=== PATIENT | female | born 1980 | race Caucasian/White ===

== ENCOUNTER 2016-04-15 21:39 | Emergency (ER) | payer SELFPAY ==
[~2016-04-15] VITALS: Ht 160 cm; Wt 75.9 kg
[~2016-04-15 21:39] MED LIST: CLEO300C2 PO; ESOM1CAP6 PO; LORTA5 PO; MMW SSP; NORV10TA PO
[2016-04-15 21:55] VITALS: BP 106/75; PULSE 92; RESP 16; TEMP 98.6; O2SAT 99
--- NOTE | 2016-04-15 22:40 | PD ---
HPI Chief Complaint: Oral / Dental Pain or Problem Time Seen by Provider: 22:37 Travel History International Travel<30 days: No Contact w/Intl Traveler<30days: No History of Present Illness HPI Patient comes in complaining of right upper dental pain ongoing for about a week. Patient's states filling fell out a Couple Years Ago but Has Not Been able to get in with a Dentist yet secondary to financial and insurance issues. Patient's been using Anbesol with some improvement of her pain. Pain is worse with eating or drinking. Patient has any known fevers, nausea, vomiting, difficulty swallowing, or . PFSH Past Medical History Asthma: [place]") Autoimmune Disease: Yes (CHRONIC ABD PAIN, IBS AND CROHNS - PT DENIES) Blood Disorders: No Depression: Yes Heart Rhythm Problems: Yes Cancer: No Cardiovascular Problems: Yes (TACHYCARDIA) High Cholesterol: No Chemotherapy: No Chest Pain: No Congestive Heart Failure: No COPD: No Diabetes: No Diminished Hearing: No Diverticulitis: Yes (PT DENIES) Endocrine: No Gastrointestinal Disorders: Yes (GASTROPARESIS) Genitourinary: Yes Immune Disorder: No Kidney Stones: No Musculoskeletal: Yes (2 herniated discs) Neurologic: No Psychiatric: No Reproductive: Yes (ovary removed left side) Respiratory: No Radiation Therapy: No Renal Failure: No Sleep Apnea: No Thyroid Disease: No : 1 Para: 0 Miscarriage: 1 : 0 Ectopic : Yes Ovarian Cysts: Yes Past Surgical History Abdominal Surgery: Yes (HERNIA REPAIRS WITH MESH AGE 22 FOR DOUBLE INGUINAL HERNIAS 2O TO MYOMECTOM) Appendectomy: Yes Body Medical Devices: CHRONIC ABD. PAIN S/P SURGERY LAST YR WITH MESH INSERTION Cardiac Surgery: No Ear Surgery: No Endocrine Surgery: No Eye Surgery: No Genitourinary Surgery: No Gynecologic Surgery: Yes Neurologic Surgery: No Oral Surgery: No Pacemaker: No Thoracic Surgery: No Other Surgery: Yes Social History Alcohol Use: No Tobacco Use: Yes (2 PPD) Substance Use: No Allergies-Medications (Allergen,Severity, Reaction): Coded Allergies: Ambien (Verified Allergy, Severe, HALLUCINATIONS, 04/15/16) Contrast Media (Verified Allergy, Severe, ANAPHYLAXIS, 04/15/16) Flagyl (Verified Allergy, Severe, HIVES, 04/15/16) Iodine (Verified Allergy, Severe, ORAL IODINE, 04/15/16) Penicillin (Verified Allergy, Severe, ANAPHYLAXIS, 04/15/16) Sulfa (Verified Allergy, Severe, Swelling, 04/15/16) Tetanus Toxoid (Verified Allergy, Severe, ANAPHYLAXIS, 04/15/16) Macrobid (Verified Adverse Reaction, Intermediate, Chest Pain, 04/15/16) Reported Meds & Prescriptions Reported Meds & Active Scripts Active Diclofenac Sodium DR (Diclofenac Sodium) 75 Mg Tabdr 75 Mg PO Q12HR PRN Clindamycin (Clindamycin HCl) 150 Mg Cap 2 Tab PO Q6H 10 Days Review of Systems Except as stated in HPI: all other systems reviewed are Neg Physical Exam Narrative GENERAL: Well-developed, overly nourished, in no acute distress, and non-ill appearing. SKIN: Warm and dry. HEAD: Atraumatic. Normocephalic. EYES: Pupils equal and round. EOMI. No scleral icterus. No injection or drainage. ENT: No nasal bleeding or discharge. Mucous membranes pink and moist. Poor dentition with no visible or palpable abscess. Tympanic membranes pearly almonte. Posterior pharynx erythematous without exudate. Uvula is midline. NECK: Trachea midline. No cervical lymphadenopathy. Supple. No nuclear rigidity. RESPIRATORY: No accessory muscle use. No respiratory distress. MUSCULOSKELETAL: No obvious deformities. No clubbing. No cyanosis. No edema. Full range of motion. NEUROLOGICAL: Awake and alert. No obvious cranial nerve deficits. Motor grossly within normal limits. Normal speech. PSYCHIATRIC: Appropriate mood and affect; insight and judgment normal. Data Data Last Documented VS Vital Signs Date Time Temp Pulse Resp B/P Pulse Ox O2 Delivery O2 Flow Rate FiO2 04/15/16 23:09 72 18 112/78 99 04/15/16 21:55 98.6 MDM Medical Decision Making Medical Screen Exam Complete: Yes Emergency Medical Condition: Yes Differential Diagnosis Dental abscess, dental infection, dentalgia, other Narrative Course The patient presented with dental pain. There is no fever. There is no significant facial swelling or evidence of cellulitis. There is poor dentition but no evidence of drainable abscess at this time. There is no evidence of significant deep or invading abscess at this time. The patient will be placed on antibiotics and pain medication. The patient was instructed to follow up with a dentist. The patient was given the dental referral sheet. Warnings were discussed with the patient regarding worsening of infection. The patient is to return if pain worsens, develops progressive swelling or facial redness or fever. The patient agrees with plan. Patient in no obvious distress upon re-evaluation. Patient was asked if they wanted to speak to my attending, which the patient did not wish to do at this time. Any questions/concerns in reference to patient diagnosis/condition discussed and clarified prior to patient's discharge. Reinforced sheer importance of close follow up with patient's primary physician or primary care clinic. Instructed patient to return to ED immediately, if symptoms return/ worsen. Pt showed understanding of above instructions. Further instructions and recommendations were detailed in discharge paperwork. Pt ambulated without difficulty out of ED at discharge. Diagnosis Primary Impression: Dental infection Patient Instructions: Dental Abscess (ED), Dental Caries (DC), General Instructions Additional Instructions: Follow-up with your primary care physician and dentist as soon as possible. Rinse mouth with warm salt water gargles. Take all medication as prescribed. Return to the emergency department if symptoms get worse. Med/Other Pt SpecificInfo: Prescription(s) given Scripts Diclofenac Sodium DR 75 Mg Tabdr75 Mg PO Q12HR PRN (PAIN SCALE 1 TO 10) #14 TAB Ref 0 Prov:Antonio Jackson MD 04/15/16 Clindamycin 150 Mg Cap2 Tab PO Q6H 10 Days Ref 0 Prov:Antonio Jackson MD 04/15/16 Disposition: 01 DISCHARGE HOME Condition: Stable Adam Jennings Apr 15, 2016 22:40
[2016-04-15] MEDS ORDERED: DICL75TA PO (22:41)
[2016-04-15] MEDS ORDERED: CLIN1CAP5 PO (22:41)
[2016-04-15 23:09] VITALS: BP 112/78
== END 2016-04-15 23:09 | disposition home or self-care (01) ==
LOC: PHEFT 21:39
DX: K04.7 Periapical abscess without sinus (principal); R00.0 Tachycardia, unspecified; K31.84 Gastroparesis; F17.210 Nicotine dependence, cigarettes, uncomplicated
CPT/HCPCS: 99282

== ENCOUNTER 2016-05-30 21:16 | Emergency (ER) | payer SELFPAY ==
[~2016-05-30] VITALS: Ht 165.1 cm; Wt 65.0 kg
[~2016-05-30 21:16] MED LIST changes: -CLEO300C2 PO; +CLIN1CAP5 PO; +DICL75TA PO; -ESOM1CAP6 PO; -LORTA5 PO; -MMW SSP; -NORV10TA PO
[2016-05-30 21:22] VITALS: BP 117/68; PULSE 64; RESP 16; TEMP 98.6; O2SAT 100
[2016-05-30] MEDS ORDERED: SODIUM CHLOR 0.9% 1000 ML INJ 1,000 ML IV SCH (21:46)
[2016-05-30] MEDS ORDERED: NALOXONE HCL 2 MG/2 ML VIAL ONE (21:47)
[2016-05-30 21:58] VITALS: RESP 16
[2016-05-30] MEDS ORDERED: SODIUM CHLORIDE 0.9% FLUSH 5 ML FLUSH IVF PRN (22:00)
--- NOTE | 2016-05-30 22:08 | RADRPT ---
EXAM DATE/TIME: 05/30/2016 21:58 [facility] COMPARISON: CHEST PA & LAT, November 13, 2012, 0:23. INDICATIONS : Short of Breath, Altered Mental Status. MEDICAL HISTORY : Asthma. SURGICAL HISTORY : None. ENCOUNTER: Initial ACUITY: 1 day PAIN SCORE: Non-responsive. LOCATION: Bilateral chest FINDINGS: A single view of the chest demonstrates the lungs to be symmetrically aerated without evidence of mas s, infiltrate or effusion. The cardiomediastinal contours are unremarkable. Osseous structures are intact. CONCLUSION: No acute disease. Gregory Santos MD on May 30, 2016 at 22:06 Board Certified Radiologist. This report was verified electronically.
--- NOTE | 2016-05-30 22:18 | PD ---
HPI Chief Complaint: Altered Mental Status Time Seen by Provider: 22:00 Travel History International Travel<30 days: No Contact w/Intl Traveler<30days: No Traveled to known affect area: No History of Present Illness HPI Patient is a 35-year-old female brought in by EMS for evaluation of altered mental status. Per EMS report patient vomited twice. Patient is groggy, is not answering questions at this time. PFSH Past Medical History Asthma: [place] ("[place]") Autoimmune Disease: Yes (CHRONIC ABD PAIN, IBS AND CROHNS - PT DENIES) Blood Disorders: No Depression: Yes Heart Rhythm Problems: Yes Cancer: No High Cholesterol: No Chemotherapy: No Chest Pain: No Congestive Heart Failure: No COPD: No Diabetes: No Diminished Hearing: No Diverticulitis: Yes (PT DENIES) Endocrine: No Genitourinary: Yes Hypertension: No Immune Disorder: No Implanted Vascular Access Dvce: No Kidney Stones: No Musculoskeletal: Yes (2 herniated discs) Neurologic: No Psychiatric: No Reproductive: Yes (ovary removed left side) Respiratory: No Immunizations Current: No Radiation Therapy: No Renal Failure: No Sleep Apnea: No Thyroid Disease: No Tetanus Vaccination: > 5 Years ?: Unknown LMP: 05/29/16 : 1 Para: 0 Miscarriage: 1 : 0 Ectopic : Yes Ovarian Cysts: Yes Past Surgical History Abdominal Surgery: Yes (HERNIA REPAIRS WITH MESH AGE 22 FOR DOUBLE INGUINAL HERNIAS 2O TO MYOMECTOM) Appendectomy: Yes Body Medical Devices: CHRONIC ABD. PAIN S/P SURGERY LAST YR WITH MESH INSERTION Cardiac Surgery: No Ear Surgery: No Endocrine Surgery: No Eye Surgery: No Genitourinary Surgery: No Gynecologic Surgery: Yes Neurologic Surgery: No Oral Surgery: No Pacemaker: No Thoracic Surgery: No Other Surgery: Yes Social History Alcohol Use: No Tobacco Use: Yes (2 PPD) Substance Use: No Allergies-Medications (Allergen,Severity, Reaction): Coded Allergies: Ambien (Verified Allergy, Severe, HALLUCINATIONS, 05/30/16) Contrast Media (Verified Allergy, Severe, ANAPHYLAXIS, 05/30/16) Flagyl (Verified Allergy, Severe, HIVES, 05/30/16) Iodine (Verified Allergy, Severe, ORAL IODINE, 05/30/16) Penicillin (Verified Allergy, Severe, ANAPHYLAXIS, 05/30/16) Sulfa (Verified Allergy, Severe, Swelling, 05/30/16) Tetanus Toxoid (Verified Allergy, Severe, ANAPHYLAXIS, 05/30/16) Macrobid (Verified Adverse Reaction, Intermediate, Chest Pain, 05/30/16) Reported Meds & Prescriptions Reported Meds & Active Scripts Active Zofran Odt (Ondansetron Odt) 4 Mg Tab 4 Mg SL Q6HR PRN Diclofenac Sodium DR (Diclofenac Sodium) 75 Mg Tabdr 75 Mg PO Q12HR PRN Clindamycin (Clindamycin HCl) 150 Mg Cap 2 Tab PO Q6H 10 Days Review of Systems ROS Limitations: Altered Mental Status Except as stated in HPI: all other systems reviewed are Neg Physical Exam Narrative GENERAL: Well-developed, well-nourished female. Appears to be in no acute distress. SKIN: Warm and dry. HEAD: Atraumatic. Normocephalic. EYES: Pupils equal and round. No scleral icterus. No injection or drainage. ENT: No nasal bleeding or discharge. Mucous membranes pink and moist. NECK: Trachea midline. No JVD. CARDIOVASCULAR: Regular rate and rhythm. No murmur appreciated. RESPIRATORY: No accessory muscle use. Clear to auscultation. Breath sounds equal bilaterally. GASTROINTESTINAL: Abdomen soft, non-tender, nondistended. Hepatic and splenic margins not palpable. MUSCULOSKELETAL: No obvious deformities. No clubbing. No cyanosis. No edema. NEUROLOGICAL: Drowsy, responding to sternal rub. No obvious cranial nerve deficits. Motor grossly within normal limits. Normal speech. PSYCHIATRIC: Appropriate mood and affect; insight and judgment normal. Data Data Last Documented VS Vital Signs Date Time Temp Pulse Resp B/P Pulse Ox O2 Delivery O2 Flow Rate FiO2 05/30/16 22:30 55 16 105/62 100 Room Air 05/30/16 21:22 98.6 Orders Electrocardiogram (05/30/16 21:46) Complete Blood Count With Diff (05/30/16 21:46) Comprehensive Metabolic Panel (05/30/16 21:46) Creatine Kinase (Cpk) (05/30/16 21:46) Urinalysis - C+S If Indicated (05/30/16 21:46) Chest, Single Ap (05/30/16 21:46) Blood Glucose (05/30/16 21:46) Ecg Monitoring (05/30/16 21:46) Iv Access Insert/Monitor (05/30/16 21:46) Oximetry (05/30/16 21:46) Sodium Chloride 0.9% Flush (Ns Flush) (05/30/16 22:00) Sodium Chlor 0.9% 1000 Ml Inj (Ns 1000 M (05/30/16 21:46) Drug Screen, Random Urine (05/30/16 21:46) Alcohol (Ethanol) (05/30/16 21:46) Salicylates (Aspirin) (05/30/16 21:46) Tylenol (Acetaminophen) (05/30/16 21:46) Naloxone Inj (Narcan Inj) (05/30/16 21:47) Lipase (05/30/16 21:59) Ondansetron Inj (Zofran Inj) (05/30/16 23:15) Ct Abd/Pel W/O Iv Contrast (05/30/16 ) Labs Laboratory Tests Test 05/30/16 05/30/16 21:50 22:00 White Blood Count 10.6 TH/MM3 Red Blood Count 4.25 MIL/MM3 Hemoglobin 12.9 GM/DL Hematocrit 38.0 % Mean Corpuscular Volume 89.3 FL Mean Corpuscular Hemoglobin 30.4 PG Mean Corpuscular Hemoglobin 34.1 % Concent Red Cell Distribution Width 15.1 % Platelet Count 267 TH/MM3 Mean Platelet Volume 9.7 FL Neutrophils (%) (Auto) 82.2 % Lymphocytes (%) (Auto) 12.6 % Monocytes (%) (Auto) 4.7 % Eosinophils (%) (Auto) 0.1 % Basophils (%) (Auto) 0.4 % Neutrophils # (Auto) 8.8 TH/MM3 Lymphocytes # (Auto) 1.3 TH/MM3 Monocytes # (Auto) 0.5 TH/MM3 Eosinophils # (Auto) 0.0 TH/MM3 Basophils # (Auto) 0.0 TH/MM3 CBC Comment DIFF FINAL Differential Comment Urine Color YELLOW Urine Turbidity CLEAR Urine pH 6.5 Urine Specific [place] 1.032 Urine Protein 30 mg/dL Urine Glucose (UA) NEG mg/dL Urine Ketones 150 mg/dL Urine Occult Blood NEG Urine Nitrite NEG Urine Bilirubin NEG Urine Urobilinogen 2.0 MG/DL Urine Leukocyte Esterase TRACE Urine WBC 0-2 /hpf Urine Squamous Epithelial 0-5 /hpf Cells Microscopic Urinalysis Comment CATH-CULT NOT IND Sodium Level 146 MEQ/L Potassium Level 3.7 MEQ/L Chloride Level 109 MEQ/L Carbon Dioxide Level 23.3 MEQ/L Anion Gap 14 MEQ/L Blood Urea Nitrogen 15 MG/DL Creatinine 0.56 MG/DL Estimat Glomerular Filtration 122 ML/MIN Rate Random Glucose 90 MG/DL Calcium Level 8.4 MG/DL Total Bilirubin 0.5 MG/DL Aspartate Amino Transf 15 U/L (AST/SGOT) Alanine Aminotransferase 15 U/L (ALT/SGPT) Alkaline Phosphatase 57 U/L Total Creatine Kinase 63 U/L Total Protein 6.4 GM/DL Albumin 3.1 GM/DL Urine Opiates Screen POS Acetaminophen Level LESS THAN 2.0 MCG/ML Urine Barbiturates Screen NEG Urine Amphetamines Screen POS Urine Benzodiazepines Screen POS Urine Cocaine Screen NEG Urine Cannabinoids Screen NEG Ethyl Alcohol Level LESS THAN 3 MG/DL Lipase 132 U/L Salicylates Level 3.6 MG/DL MDM Medical Decision Making Medical Screen Exam Complete: Yes Emergency Medical Condition: Yes Interpretation(s) Vital Signs Date Time Temp Pulse Resp B/P Pulse Ox O2 Delivery O2 Flow Rate FiO2 05/30/16 21:58 16 05/30/16 21:25 16 05/30/16 21:22 98.6 64 16 117/68 100 Differential Diagnosis Intoxication versus overdose versus mood disorder versus TIA versus UTI Narrative Course Patient is a 35-year-old female presented to the emergency department the EMS for evaluation of altered mental status. Patient vomited twice prior to arrival. She has not vomited since she has been here. Patient is drowsy only responding to a sternal rub on initial evaluation. Patient was given 0.5mg of Narcan, she aroused slightly. Labs, chest x-ray ordered, urine drug screen, urinalysis. Family at bedside. Patient's vital signs are stable, IV access initiated, patient placed on telemetry monitoring and continuous pulse oximetry. Initial EKG shows sinus bradycardia with a rate of 56. Care of patient transferred to my attending physician will be responsible for her disposition. Scripts Ondansetron Odt (Zofran Odt)4 Mg Tab4 Mg SL Q6HR PRN (Nausea/Vomiting) #10 TAB Prov:Fanny Sam MD 05/31/16 Sheryl Mercado May 30, 2016 22:18
[2016-05-30 22:26] LABS: AUTOMATED NEUTROPHIL # 8.8 TH/MM3 (1.8-7.7); BASOPHIL % 0.4 % (0.0-2.0); EOSINOPHIL % 0.1 % (0.0-4.0); HEMO FLAGS DIFF FINAL; LYMPH % 12.6 % (9.0-44.0); LYMPHOCYTE # 1.3 TH/MM3 (1.0-4.8); MEAN CELL VOLUME 89.3 FL (80.0-100.0); MEAN CORPUSCULAR HEMOGLOBIN 30.4 PG (27.0-34.0); MEAN CORPUSCULAR HGB CONC 34.1 % (32.0-36.0); MONO % 4.7 % (0.0-8.0); NEUT % 82.2 % (16.0-70.0); PLATELET COUNT 267 TH/MM3 (150-450); RED BLOOD COUNT 4.25 MIL/MM3 (4.00-5.30); RED CELL DISTRIBUTION WIDTH 15.1 % (11.6-17.2); WHITE BLOOD COUNT 10.6 TH/MM3 (4.0-11.0)
[2016-05-30 22:30] VITALS: BP 105/62; PULSE 55; RESP 16; O2SAT 100
[2016-05-30 22:32] LABS: BLOOD, URINE NEG (NEG); GLUCOSE,URINE NEG (NEG); KETONE, URINE 150 mg/dL (NEG); NITRITE,URINE NEG (NEG); PH, URINE 6.5 (5.0-8.5); URINE COLOR YELLOW (YELLW/STRAW)
[2016-05-30 22:53] LABS: ACETAMINOPHEN LESS THAN 2.0 MCG/ML (10.0-30.0); ALKALINE PHOSPHATASE 57 U/L (45-117); ALT (GPT) 15 U/L (10-53); ANION GAP 14 MEQ/L (5-15); AST (GOT) 15 U/L (15-37); BICARBONATE 23.3 MEQ/L (21.0-32.0); BLOOD UREA NITROGEN 15 MG/DL (7-18); CHLORIDE 109 MEQ/L (98-107); CREATINE KINASE 63 U/L (26-192); GLOMERULAR FILTRATION RATE 122 ML/MIN (>89); POTASSIUM 3.7 MEQ/L (3.5-5.1); SODIUM (NA) 146 MEQ/L (136-145); TOTAL BILIRUBIN ADULT 0.5 MG/DL (0.2-1.0)
[2016-05-30 22:59] LABS: COMMENT (UR) CATH-CULT NOT IND; CULTURE IF INDICATED CATH CULTURE NOT IND; SQUAMOUS EPITHELIAL CELL URINE 0-5 /hpf (0-5); WBC, URINE 0-2 /hpf (0-5)
[2016-05-30] MEDS ORDERED: ONDANSETRON HCL 4 MG/2 ML VIAL IV PUSH ONE (23:15)
[2016-05-30 23:36] LABS: AMPHETAMINE, URINE POS (NEG); BARBITURATES, URINE NEG (NEG); COCAINE, URINE NEG (NEG)
--- NOTE | 2016-05-31 00:18 | RADRPT ---
EXAM DATE/TIME: 05/30/2016 23:46 [facility] COMPARISON: CT ABDOMEN & PELVIS W/O CONTRAST, March 16, 2014, 19:32. INDICATIONS : Abdominal pain with vomiting x2 days. ORAL CONTRAST: No oral contrast ingested. RADIATION DOSE: 7.71 CTDIvol (mGy) MEDICAL HISTORY : Hernia, inguinal. SURGICAL HISTORY : Appendectomy. Left ovary removed. Hernia repair. ENCOUNTER: Initial ACUITY: 2 days PAIN SCALE: 8/10 LOCATION: Left abdomen TECHNIQUE: Volumetric scanning of the abdomen and pelvis was performed. Using automated exposure control and ad justment of the mA and/or kV according to patient size, radiation dose was kept as low as reasonably achievable to obtain optimal diagnostic quality images. FINDINGS: LOWER LUNGS: The visualized lower lungs are clear. LIVER: There is a subtle triangular shaped low density along the anterior surface of the liver adjacent to t he falciform ligament which is likely focal steatosis. The liver density is otherwise fairly homogene ous and no ductal dilatation is suspected. SPLEEN: Normal size without lesion. PANCREAS: Within normal limits. KIDNEYS: Normal in size and shape. There is no mass, stone, or hydronephrosis. ADRENAL GLANDS: Within normal limits. VASCULAR: There is no aortic aneurysm. BOWEL/MESENTERY: Previous bowel surgery with anastomosis in the right lower quadrant. Significant stool in the rectum. Loops otherwise normal in caliber and appearance. ABDOMINAL WALL: Mesh along the low anterior pelvic wall. RETROPERITONEUM: There is no lymphadenopathy. BLADDER: Dependent density in the posterior right bladder base may be calcific debris. Wall thickening is asso ciated with a bladder mass would be an additional consideration. REPRODUCTIVE: Within normal limits. INGUINAL: There is no lymphadenopathy or hernia. MUSCULOSKELETAL: Within normal limits for patient age. CONCLUSION: Low-density area in the liver is likely benign steatosis, however this should be further evaluated an d characterized with MRI on an elective basis. Abnormal bladder appearance as described above. Franky Stoll MD on May 31, 2016 at 0:10 Board Certified Radiologist. This report was verified electronically.
[2016-05-31] MEDS ORDERED: ZOFR4TAB3 SL (00:29)
--- NOTE | 2016-05-31 00:30 | PD ---
Physical Exam Narrative GENERAL: Well-nourished, well-developed patient. SKIN: Warm and dry. HEAD: Normocephalic and atraumatic. EYES: No injection or drainage. ENT: No nasal drainage noted. NECK: Supple, trachea midline. CARDIOVASCULAR: Regular rate and rhythm RESPIRATORY: Breath sounds equal bilaterally. No accessory muscle use. GASTROINTESTINAL: Abdomen soft, mild ttp diffusely, nondistended. NEUROLOGICAL: Awakens to voice. Motor and sensory grossly within normal limits. Normal speech. Data Data Last Documented VS Vital Signs Date Time Temp Pulse Resp B/P Pulse Ox O2 Delivery O2 Flow Rate FiO2 05/30/16 22:30 55 16 105/62 100 Room Air 05/30/16 21:22 98.6 Orders Electrocardiogram (05/30/16 21:46) Complete Blood Count With Diff (05/30/16 21:46) Comprehensive Metabolic Panel (05/30/16 21:46) Creatine Kinase (Cpk) (05/30/16 21:46) Urinalysis - C+S If Indicated (05/30/16 21:46) Chest, Single Ap (05/30/16 21:46) Blood Glucose (05/30/16 21:46) Ecg Monitoring (05/30/16 21:46) Iv Access Insert/Monitor (05/30/16 21:46) Oximetry (05/30/16 21:46) Sodium Chloride 0.9% Flush (Ns Flush) (05/30/16 22:00) Sodium Chlor 0.9% 1000 Ml Inj (Ns 1000 M (05/30/16 21:46) Drug Screen, Random Urine (05/30/16 21:46) Alcohol (Ethanol) (05/30/16 21:46) Salicylates (Aspirin) (05/30/16 21:46) Tylenol (Acetaminophen) (05/30/16 21:46) Naloxone Inj (Narcan Inj) (05/30/16 21:47) Lipase (05/30/16 21:59) Ondansetron Inj (Zofran Inj) (05/30/16 23:15) Ct Abd/Pel W/O Iv Contrast (05/30/16 ) Labs Laboratory Tests Test 05/30/16 05/30/16 21:50 22:00 White Blood Count 10.6 TH/MM3 Red Blood Count 4.25 MIL/MM3 Hemoglobin 12.9 GM/DL Hematocrit 38.0 % Mean Corpuscular Volume 89.3 FL Mean Corpuscular Hemoglobin 30.4 PG Mean Corpuscular Hemoglobin 34.1 % Concent Red Cell Distribution Width 15.1 % Platelet Count 267 TH/MM3 Mean Platelet Volume 9.7 FL Neutrophils (%) (Auto) 82.2 % Lymphocytes (%) (Auto) 12.6 % Monocytes (%) (Auto) 4.7 % Eosinophils (%) (Auto) 0.1 % Basophils (%) (Auto) 0.4 % Neutrophils # (Auto) 8.8 TH/MM3 Lymphocytes # (Auto) 1.3 TH/MM3 Monocytes # (Auto) 0.5 TH/MM3 Eosinophils # (Auto) 0.0 TH/MM3 Basophils # (Auto) 0.0 TH/MM3 CBC Comment DIFF FINAL Differential Comment Urine Color YELLOW Urine Turbidity CLEAR Urine pH 6.5 Urine Specific [place] 1.032 Urine Protein 30 mg/dL Urine Glucose (UA) NEG mg/dL Urine Ketones 150 mg/dL Urine Occult Blood NEG Urine Nitrite NEG Urine Bilirubin NEG Urine Urobilinogen 2.0 MG/DL Urine Leukocyte Esterase TRACE Urine WBC 0-2 /hpf Urine Squamous Epithelial 0-5 /hpf Cells Microscopic Urinalysis Comment CATH-CULT NOT IND Sodium Level 146 MEQ/L Potassium Level 3.7 MEQ/L Chloride Level 109 MEQ/L Carbon Dioxide Level 23.3 MEQ/L Anion Gap 14 MEQ/L Blood Urea Nitrogen 15 MG/DL Creatinine 0.56 MG/DL Estimat Glomerular Filtration 122 ML/MIN Rate Random Glucose 90 MG/DL Calcium Level 8.4 MG/DL Total Bilirubin 0.5 MG/DL Aspartate Amino Transf 15 U/L (AST/SGOT) Alanine Aminotransferase 15 U/L (ALT/SGPT) Alkaline Phosphatase 57 U/L Total Creatine Kinase 63 U/L Total Protein 6.4 GM/DL Albumin 3.1 GM/DL Urine Opiates Screen POS Acetaminophen Level LESS THAN 2.0 MCG/ML Urine Barbiturates Screen NEG Urine Amphetamines Screen POS Urine Benzodiazepines Screen POS Urine Cocaine Screen NEG Urine Cannabinoids Screen NEG Ethyl Alcohol Level LESS THAN 3 MG/DL Salicylates Level 3.6 MG/DL [facility] Supervised Visit with MIRNA: Yes Interpretation(s) CBC & BMP Diagram 05/30/16 21:50 Last 24 hours Impressions Chest X-Ray 05/30/166 Signed Impressions: Service Date/Time: Monday, May 30, 2016 21:58 - CONCLUSION: No acute disease. Gregory Santos MD CT abdomen pelvis shows possible calcification densities in bladder, possible area in liver needing MRI evaluation Narrative Course I, Dr. cruz, have reviewed the advance practice practitioner's documentation and am in agreement, met with the patient face to face, made the diagnosis, and the medical decision making was done by me. *My assessment and Findings: 35 y/o female presents diffuse abdominal pain that she has been struggling with for a while. She took opioid pain medication and is drowsy. Patient was given very low dose of Narcan at 0.5 mg and this did not change her status at all. She is 100% on room air and awakens easily to voice. Will add on CT scan of abdomen pelvis and monitor Family is at bedside and will watch over patient. Given copy of CAT scan and follow-up outpatient. Patient had opioids, benzodiazepines and methamphetamines and urine drug screen which is likely contributing to her altered mental status. She is able to ambulate in the room on her own and family feels comfortable monitoring her at home. She'll be given prescription of Zofran for nausea. Family given return instructions Diagnosis Primary Impression: Abdominal pain Additional Impressions: Vomiting Polysubstance abuse Additional Instruction: return as needed, follow with primary tommorrow, tylenol as needed for pain, limit narcotic pain medication and don't take medication not prescribed to you Med/Other Pt SpecificInfo: Prescription(s) given Scripts Ondansetron Odt (Zofran Odt)4 Mg Tab4 Mg SL Q6HR PRN (Nausea/Vomiting) #10 TAB Prov:Fanny Cruz MD 05/31/16 Disposition: DISCHARGE HOME Condition: Stable Fanny Cruz MD May 31, 2016 00:30
--- NOTE | 2016-05-31 14:25 | EKG ---
Date Performed: 05/30/2016 Time Performed: 21:25:03 PTAGE: 35 years EKG: SINUS BRADYCARDIA BORDERLINE ECG Compared to prior tracing no significant change PREVIOUS TRACING : 03/16/2014 17.05 DOCTOR: Cody Ashby Interpretating Date/Time 05/31/2016 14:23:26
== END 2016-05-31 01:07 | disposition home or self-care (01) ==
LOC: NEPE 21:16
DX: R10.84 Generalized abdominal pain (principal); R11.10 Vomiting, unspecified; F19.10 Other psychoactive substance abuse, uncomplicated; F15.10 Other stimulant abuse, uncomplicated; F11.10 Opioid abuse, uncomplicated; F17.210 Nicotine dependence, cigarettes, uncomplicated; K50.90 Crohn's disease, unspecified, without complications; K58.9 Irritable bowel syndrome, unspecified; R00.1 Bradycardia, unspecified
CPT/HCPCS: 71010; 74176; 80053; 80307; 81001; 82550; 83690; 85025; 93005; 96374; 99285; J2310; J2405; J7030; 80320

== ENCOUNTER 2017-04-02 14:27 | Emergency (ER) | payer OTHER ==
[~2017-04-02] VITALS: Ht 160 cm; Wt 86.0 kg
[~2017-04-02 14:27] MED LIST changes: +CLIN150C14 PO; -CLIN1CAP5 PO; +ZOFR4TAB3 SL
[2017-04-02 14:29] VITALS: BP 111/71; PULSE 107; RESP 20; TEMP 99.2; O2SAT 100
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
[2017-04-02] MEDS ORDERED: NEXI20CA PO (15:10)
[2017-04-02] MEDS ORDERED: ALPR.5 PO (15:10)
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
[2017-04-02] MEDS ORDERED: ROBA500T PO (15:37)
[2017-04-02] MEDS ORDERED: METHOCARBAMOL 500 MG TAB PO ONE (15:45)
== END 2017-04-02 16:06 | disposition home or self-care (01) ==
LOC: NEPD 14:27
DX: M25.512 Pain in left shoulder (principal); F17.200 Nicotine dependence, unspecified, uncomplicated
CPT/HCPCS: 73000; 99283